=== PATIENT | female | born 1985 | race Caucasian/White ===

== ENCOUNTER 2016-03-07 15:37 | Emergency (ER) | payer OTHER ==
[~2016-03-07] VITALS: Wt 67.5 kg
[~2016-03-07 15:37] MED LIST: ACET500C5 PO; CEPH-443 PO; CETI10CA PO; CLOT30CR24 TOP; DICY20TA59 PO; ELEC100080 PO; FLUT16SP17 NASAL; HYDR-3498 PO; IBUP-1542 PO; LOPE2CAP PO; NITR-58 PO; ONDA4TAB35 PO; ZOF8 PO
[2016-03-07] MEDS ORDERED: AMOX1TAB10 PO (16:58)
[2016-03-07] MEDS ORDERED: IBUP-1542 PO (16:58)
--- NOTE | 2016-03-07 18:01 | ERD ---
ER Documentation Chief Complaint Date/Time DATE: 03/07/16 TIME: 17:58 Chief Complaint LEFT EAR PAIN X2 DAYS HPI 30-year-old female comes in with left-sided facial pain for 2 days. It is localized just right outside and anterior to the left ear, she states that she feels a ball in that area, and it is exacerbated each time she tries to chew or talk. There is no pain in the ear, she denies any fevers or chills. ROS All systems reviewed and are negative except as per history of present illness. Medications Home Meds Active Scripts Ibuprofen* (Motrin*) 600 Mg Tab, 600 MG PO Q6, #30 TAB Prov:BLAKE PEDRAZA PA-C 03/07/16 Amoxicillin/Potassium Clav (Amox-Clav 875-125 mg Tablet) 875-125 mg Tab, 1 TAB PO BID for 7 Days, #14 TAB Prov:BLAKE PEDRAZA PA-C 03/07/16 Ibuprofen* (Motrin*) 600 Mg Tab, 600 MG PO Q6, #30 TAB Prov:BLAKE PEDRAZA PA-C 01/22/16 Ibuprofen* (Motrin*) 600 Mg Tab, 600 MG PO Q6H Y for PAIN AND OR ELEVATED TEMP, #30 TAB Prov:KATHI COLON NP 11/25/15 Dicyclomine Hcl* (Bentyl*) 20 Mg Tablet, 20 MG PO QID, #20 TAB Prov:KATHI COLON NP 11/25/15 Cephalexin* (Keflex*) 500 Mg Capsule, 500 MG PO QID for 10 Days, CAP Prov:KATHI COLON NP 11/25/15 Fluticasone Propionate* (Fluticasone Propionate* Nasal) 50 Mcg/[place] - 16 Gm [place].susp, 1 SPRAY NASAL BID, #1 BOTTLE TO EACH NOSTRIL Prov:LD HUTCHINS PA-C 10/31/15 Ibuprofen* (Motrin*) 600 Mg Tab, 600 MG PO Q6, #30 TAB Prov:LD HUTCHINS PA-C 10/31/15 Cetirizine Hcl* (Zyrtec*) 10 Mg Capsule, 10 MG PO DAILY, #14 TAB.CHEW Prov:LD HUTCHINS PA-C 10/31/15 Electrolyte,Oral (Pedialyte) 1,000 Ml Solution, 100 ML PO Q6 Y for DIARRHEA, # 1000 ML Prov:LD HUTCHINS PA-C 10/31/15 Loperamide Hcl* (Imodium*) 2 Mg Capsule, 2 MG PO .AFTER EA LOOSE BM Y for DIARRHEA, #8 TAB Prov:LD HUTCHINS PA-C 10/31/15 Ibuprofen* (Motrin*) 600 Mg Tab, 600 MG PO Q6H Y for PAIN AND OR ELEVATED TEMP, #30 Prov:HELEN AVILA NP 01/01/15 Acetaminophen* (Tylophen*) 500 Mg Capsule, 1 CAP PO Q6H Y for PAIN AND OR ELEVATED TEMP, #20 CAP Prov:PONCE WILLSON PA-C 11/03/14 Ondansetron Hcl* (Zofran* ODT) 4 mg -ODT Tab.disper, 4 MG PO Q6 Y for NAUSEA AND /OR VOMITING, #20 TAB Prov:PONCE WILLSON PA-C 11/03/14 Clotrimazole* (Clotrimazole* AF) 1% - 30 Gm Cream.gm., 1 APPLIC TOP QHS for 7 Days, TUB Prov:PONCE WILLSON PA-C 11/03/14 Ondansetron Hcl* (Zofran* ODT) 8 mg -ODT Tab.disper, 8 MG PO Q6 Y for NAUSEA AND /OR VOMITING, #10 TAB Prov:MILLA ANDREWS MD 10/29/14 Hydrocodone Bit-Acetaminophen* ([place]*) 5-325 Mg Tab, 1 TAB PO Q6 Y for PAIN, # 12 TAB Prov:MILLA ANDREWS MD 10/29/14 Acetaminophen* (Tylophen*) 500 Mg Capsule, 1 CAP PO Q6H Y for PAIN AND OR ELEVATED TEMP, #20 CAP Prov:KATHI COLON NP 10/14/14 Ondansetron Hcl* (Zofran* ODT) 4 mg -ODT Tab.disper, 4 MG PO Q8 Y for NAUSEA AND /OR VOMITING, #30 TAB Prov:KATHI COLON NP 10/14/14 Nitrofurantoin Monohyd Macrocr* (Macrobid*) 100 Mg Capsr, 100 MG PO BID for 7 Days, CAP Prov:KATHI COLON MCCARTHY TDoug DURON 10/14/14 Reported Medications [none] No Conflict Check 10/18/12 Allergies Allergies: Coded Allergies: No Known Allergies (Verified Allergy, Mild, 10/30/15) PMhx/Soc History of Surgery: No Anesthesia Reaction: No Hx Neurological Disorder: No Hx Respiratory Disorders: No Hx Cardiac Disorders: No Hx Psychiatric Problems: No Hx Miscellaneous Medical Probl: No Hx Alcohol Use: Yes (former ) Hx Substance Use: Yes (former) Hx Tobacco Use: Yes (former) Physical Exam Vitals Vital Signs Date Time Temp Pulse Resp B/P Pulse Ox O2 Delivery O2 Flow Rate FiO2 03/07/16 16:07 97.4 78 18 100/50 98 Physical Exam General: Well-developed, well-nourished. The patient appears in no acute distress. HEENT: Head is normocephalic, atraumatic. No scleral icterus. Bilateral ears are normal. Pupils are equal, round, and reactive. Oral mucous membranes are moist. No pharyngeal erythema. Left preauricular lymph node is swollen and tender to palpation. There are no overlying skin changes. Neck: Supple. Nontender. Lungs: Clear to auscultation. Normal air movement. Heart: Regular rate and rhythm. S1 and S2 are normal. No murmurs, gallops, or rubs. Abdomen: Soft, nontender, nondistended. Bowel sounds are normoactive. Extremities: No clubbing or cyanosis. Normal pulses. Moving extremities x 4. No weakness. Neurologic: Alert and oriented 3. No focal deficits. Skin: Normal turgor. No rash or lesions. Procedures/MDM 30-year-old female comes in with lymphangitis, differential diagnosis includes lymphangitis, lymphadenopathy, abscess, cellulitis, Valle's palsy, otitis media, otitis externa, dental infection, TMJ and among others. There is swelling and tenderness that is localized to the preauricular lymph node. Patient comes to the ER concerned about a possible abscess that needs to be drained. Patient's symptoms are likely related to a viral infection, low suspicion for bacterial infection however patient will still be covered. Patient was advised to return if she has any skin changes, erythema, fever or worsening pain or swelling. Departure Diagnosis: Primary Impression: Lymphangitis Condition: Good Patient Instructions: Lymphangitis Additional Instructions: Call your primary care doctor TOMORROW for an appointment during the next 1-2 days.See the doctor sooner or return here if your condition worsens before your appointment time. BLAKE PEDRAZA PA-C Mar 07, 2016 18:00
== END 2016-03-07 17:02 | disposition home or self-care (01) ==
LOC: E/R 15:37
DX: I89.1 Lymphangitis (principal); Z87.891 Personal history of nicotine dependence
CPT/HCPCS: 99283

== ENCOUNTER 2016-06-23 20:01 | Emergency (ER) | payer OTHER ==
[~2016-06-23] VITALS: Ht 162.6 cm; Wt 68.5 kg
[~2016-06-23 20:01] MED LIST changes: +AMOX1TAB10 PO
[2016-06-23 20:12] VITALS: Ht 162.6 cm; Wt 68.5 kg
[2016-06-23] MEDS ORDERED: DOXY100T20 PO (21:30)
[2016-06-23 21:50] VITALS: BP 103/62; PULSE 75; RESP 18; TEMP 99.1
--- NOTE | 2016-06-23 23:03 | ERD ---
ER Documentation Chief Complaint Date/Time DATE: 06/23/16 TIME: 23:00 Chief Complaint LEFT GREAT TOE REDNESS/SWELLING WITH PUS + INGROWN NAIL HPI This patient is a 31-year-old female with no significant medical history presenting to the emergency department for left ingrowing toenail with redness and swelling and discharge. The patient has no history of ingrown toenail. The patient is taken no medication for relief of symptoms. The patient states she has an Implanon control device. No other reported symptoms at this time. No fevers. ROS All systems reviewed and are negative except as per history of present illness. Medications Home Meds Active Scripts Doxycycline Hyclate* (Doxycycline Hyclate*) 100 Mg Tablet.dr, 100 MG PO BID for 10 Days, #20 TAB Prov:TAY MATTHEWS PA-C 06/23/16 Ibuprofen* (Motrin*) 600 Mg Tab, 600 MG PO Q6, #30 TAB Prov:BLAKE PEDRAZA PA-C 03/07/16 Amoxicillin/Potassium Clav (Amox-Clav 875-125 mg Tablet) 875-125 mg Tab, 1 TAB PO BID for 7 Days, #14 TAB Prov:BLAKE PEDRAZA PA-C 03/07/16 Ibuprofen* (Motrin*) 600 Mg Tab, 600 MG PO Q6, #30 TAB Prov:BLAKE PEDRAZA PA-C 01/22/16 Ibuprofen* (Motrin*) 600 Mg Tab, 600 MG PO Q6H Y for PAIN AND OR ELEVATED TEMP, #30 TAB Prov:KATHI COLON NP 11/25/15 Dicyclomine Hcl* (Bentyl*) 20 Mg Tablet, 20 MG PO QID, #20 TAB Prov:KATHI COLON NP 11/25/15 Cephalexin* (Keflex*) 500 Mg Capsule, 500 MG PO QID for 10 Days, CAP Prov:KATHI COLON NP 11/25/15 Fluticasone Propionate* (Fluticasone Propionate* Nasal) 50 Mcg/[place] - 16 Gm [place].susp, 1 SPRAY NASAL BID, #1 BOTTLE TO EACH NOSTRIL Prov:LD HUTCHINS PA-C 10/31/15 Ibuprofen* (Motrin*) 600 Mg Tab, 600 MG PO Q6, #30 TAB Prov:LD HUTCHINS PA-C 10/31/15 Cetirizine Hcl* (Zyrtec*) 10 Mg Capsule, 10 MG PO DAILY, #14 TAB.CHEW Prov:LD HUTCHINS PA-C 10/31/15 Electrolyte,Oral (Pedialyte) 1,000 Ml Solution, 100 ML PO Q6 Y for DIARRHEA, # 1000 ML Prov:LD HUTCHINS PA-C 10/31/15 Loperamide Hcl* (Imodium*) 2 Mg Capsule, 2 MG PO .AFTER EA LOOSE BM Y for DIARRHEA, #8 TAB Prov:LD HUTCHINS PA-C 10/31/15 Ibuprofen* (Motrin*) 600 Mg Tab, 600 MG PO Q6H Y for PAIN AND OR ELEVATED TEMP, #30 Prov:HELEN AVILA NP 01/01/15 Acetaminophen* (Tylophen*) 500 Mg Capsule, 1 CAP PO Q6H Y for PAIN AND OR ELEVATED TEMP, #20 CAP Prov:PONCE WILLSON PA-C 11/03/14 Ondansetron Hcl* (Zofran* ODT) 4 mg -ODT Tab.disper, 4 MG PO Q6 Y for NAUSEA AND /OR VOMITING, #20 TAB Prov:PONCE WILLSON PA-C 11/03/14 Clotrimazole* (Clotrimazole* AF) 1% - 30 Gm Cream.gm., 1 APPLIC TOP QHS for 7 Days, TUB Prov:PONCE WILLSON PA-C 11/03/14 Ondansetron Hcl* (Zofran* ODT) 8 mg -ODT Tab.disper, 8 MG PO Q6 Y for NAUSEA AND /OR VOMITING, #10 TAB Prov:MILLA ANDREWS MD 10/29/14 Hydrocodone Bit-Acetaminophen* ([place]*) 5-325 Mg Tab, 1 TAB PO Q6 Y for PAIN, # 12 TAB Prov:MILLA ANDREWS MD 10/29/14 Acetaminophen* (Tylophen*) 500 Mg Capsule, 1 CAP PO Q6H Y for PAIN AND OR ELEVATED TEMP, #20 CAP Prov:KATHI COLON NP 10/14/14 Ondansetron Hcl* (Zofran* ODT) 4 mg -ODT Tab.disper, 4 MG PO Q8 Y for NAUSEA AND /OR VOMITING, #30 TAB Prov:KATHI COLON NP 10/14/14 Nitrofurantoin Monohyd Macrocr* (Macrobid*) 100 Mg Capsr, 100 MG PO BID for 7 Days, CAP Prov:KATHI COLON NP 10/14/14 Reported Medications [none] No Conflict Check 10/18/12 Allergies Allergies: Coded Allergies: No Known Allergies (Verified Allergy, Mild, 10/30/15) PMhx/Soc History of Surgery: No Anesthesia Reaction: No Hx Neurological Disorder: No Hx Respiratory Disorders: No Hx Cardiac Disorders: No Hx Psychiatric Problems: No Hx Miscellaneous Medical Probl: No (DENIES MEDICAL AND SURGICAL HX.) Hx Alcohol Use: Yes (former ) Hx Substance Use: Yes (former) Hx Tobacco Use: Yes (former) Smoking Status: Former smoker FmHx Noncontributory for chief complaint Physical Exam Vitals Vital Signs Date Time Temp Pulse Resp B/P Pulse Ox O2 Delivery O2 Flow Rate FiO2 06/23/16 21:50 99.1 75 18 103/62 100 Room Air 06/23/16 20:12 99.1 79 18 110/58 99 Physical Exam Const: The patient is resting comfortably in no acute distress. Head: Atraumatic Eyes: Normal Conjunctiva ENT: Normal External Ears, Nose and Mouth. Neck: Full range of motion..~ No meningismus. Resp: Clear to auscultation bilaterally Cardio: Regular rate and rhythm, no murmurs Abd: Soft, non tender, non distended. Normal bowel sounds Skin: No petechiae or rashes Back: No midline or flank tenderness Ext: There is an ingrowing nail noted to the left great toenail on the lateral side. There is associated redness, swelling, and some mild drainage which is purulent. The patient has 2+ pedal pulses and there is no significant erythema or warmth of the left foot. Neur: Awake and alert Psych: Normal Mood and Affect Procedures/MDM 31-year-old female presents secondary to complaints of ingrowing toenail with associated redness, swelling, and drainage on the left great toe. On physical examination the patient's vitals are within normal limits. Patient is afebrile. The left great toenail does appear to have an early cellulitis. I do not believe that removal the toenails indicated at this time due to secondary cellulitis. The patient stable for outpatient management with a prescription for doxycycline. The patient understands the discharge plan and diagnosis. Strict ER return precautions were discussed and the patient understands. Patient is to have close follow-up with primary care physician. The patient can return to the emergency department to have toenail removed after cellulitis has improved or resolved. All questions and concerns were addressed. Departure Diagnosis: Primary Impression: Cellulitis Site of cellulitis: unspecified site Qualified Code: L03.90 - Cellulitis, unspecified cellulitis site Additional Impression: Ingrowing nail with infection Condition: Fair Patient Instructions: Ingrown Toenail, Infected (Abx Only) Additional Instructions: Follow up with your PCP within the next 1-3 days for a more thorough evaluation and a possible referral to a specialist. Return the the emergency department immediately if symptoms worsen or change. If you have any questions regarding medications, ask your pharmacist or us before you leave. If any adverse reactions, occur while taking your medications, discontinue the treatment and return to the emergency department immediately. If any new or worsening symptoms, uncontrolled fevers, or other unexplained symptoms occur, return to the emergency department immediately. Take your medications as directed, and complete the entire course of treatment. TAY MATTHEWS PA-C June 23, 2016 23:03
== END 2016-06-23 21:50 | disposition home or self-care (01) ==
LOC: FTE 20:01
DX: L03.032 Cellulitis of left toe (principal); L60.0 Ingrowing nail; Z87.891 Personal history of nicotine dependence
CPT/HCPCS: 99283

== ENCOUNTER 2016-10-11 08:53 | Emergency (ER) | payer OTHER ==
[~2016-10-11] VITALS: Ht 160 cm; Wt 67.0 kg
[~2016-10-11 08:53] MED LIST changes: +DOXY100T20 PO
[2016-10-11 09:00] VITALS: Ht 160 cm; Wt 67.0 kg
[2016-10-11] MEDS ORDERED: ONDANSETRON 4 MG INJ IV STA (09:30)
[2016-10-11] MEDS ORDERED: FAMOTIDINE 20 MG INJ IV STA (09:30)
[2016-10-11] MEDS ORDERED: SOD CHLORIDE 0.9% 1,000 ML IV STA (09:30)
[2016-10-11 10:33] LABS: ADD UMIC YES; UR ASCORBIC ACID NEGATIVE (NEGATIVE); UR BILIRUBIN (Dip) NEGATIVE (NEGATIVE); UR BLOOD (Dip) 1+ mg/dL (NEGATIVE); UR CLARITY SLIGHTLY CLOUDY (CLEAR); UR COLOR YELLOW (YELLOW); UR GLUCOSE (Dip) NEGATIVE (NEGATIVE); UR KETONES (Dip) NEGATIVE (NEGATIVE); UR LEUKOCYTE ESTERASE (Dip) TRACE Leu/ul (NEGATIVE); UR MUCUS FEW /HPF (NONE SEEN); UR NITRITE (Dip) NEGATIVE (NEGATIVE); UR RBC 4 /HPF (0-5); UR SPECIFIC GRAVITY (Dip) 1.029 (1.003-1.030); UR SQUAMOUS EPITHELIAL CELL FEW /HPF (FEW); UR TOTAL PROTEIN (Dip) 1+ mg/dl (NEGATIVE); UR UROBILINOGEN (Dip) NEGATIVE (NEGATIVE)
[2016-10-11 10:45] LABS: ALBUMIN/GLOBULIN RATIO 1.21; BILIRUBIN,INDIRECT 0.3 mg/dl (0-1.1); BILIRUBIN,TOTAL 0.3 mg/dl (0.2-1.3); CALCIUM 8.8 mg/dl (8.4-10.2); CREATININE 0.66 mg/dl (0.44-1.00); POTASSIUM 3.8 mmol/L (3.5-5.1); TOTAL PROTEIN 7.3 g/dl (6.1-8.1)
[2016-10-11 11:00] LABS: BASOPHILS % 0.5 % (0.0-2.0); EOSINOPHILS # 0.1 10^3/ul (0.0-0.5); HEMATOCRIT 38.1 % (37.0-47.0); HEMOGLOBIN 12.6 g/dl (12.0-16.0); LYMPHOCYTES # 2.2 10^3/ul (0.8-2.9); LYMPHOCYTES % 27.4 % (15.0-51.0); MEAN CORPUSCULAR HEMOGLOBIN 29.6 pg (29.0-33.0); MEAN CORPUSCULAR HGB CONC 33.1 g/dl (32.0-37.0); MEAN CORPUSCULAR VOLUME 89.4 fl (82.0-101.0); MONOCYTE # 0.5 10^3/ul (0.3-0.9); NEUTROPHILS % 64.7 % (39.0-77.0); PLATELET COUNT 229 10^3/UL (140-415); RED BLOOD COUNT 4.26 10^6/ul (4.20-5.40); RED CELL DISTRIBUTION WIDTH 12.4 % (11.5-14.5); WHITE BLOOD COUNT 8.2 10^3/ul (4.8-10.8)
--- NOTE | 2016-10-11 11:12 | ERD ---
ER Documentation Chief Complaint Date/Time DATE: 10/11/16 TIME: 11:10 Chief Complaint vomiting and diarrhea HPI This 31-year-old female presents to the emergency room for evaluation of vomiting and diarrhea for the past 24 hours. She describes her diarrhea as watery, non-mucousy, nonbloody. She states that today she was at home and had 2 episodes of diarrhea and felt weak afterwards. She denies any chest pain or fevers associated with this, denies any recent travel and came to the ER for evaluation. ROS All systems reviewed and are negative except as per history of present illness. Medications Home Meds Active Scripts Doxycycline Hyclate* (Doxycycline Hyclate*) 100 Mg Tablet.dr, 100 MG PO BID for 10 Days, #20 TAB Prov:TAY MATTHEWS PA-C 06/23/16 Ibuprofen* (Motrin*) 600 Mg Tab, 600 MG PO Q6, #30 TAB Prov:BLAKE PEDRAZA PA-C 03/07/16 Amoxicillin/Potassium Clav (Amox-Clav 875-125 mg Tablet) 875-125 mg Tab, 1 TAB PO BID for 7 Days, #14 TAB Prov:BLAKE PEDRAZA PA-C 03/07/16 Ibuprofen* (Motrin*) 600 Mg Tab, 600 MG PO Q6, #30 TAB Prov:BLAKE PEDRAZA PA-C 01/22/16 Ibuprofen* (Motrin*) 600 Mg Tab, 600 MG PO Q6H Y for PAIN AND OR ELEVATED TEMP, #30 TAB Prov:KATHI COLON NP 11/25/15 Dicyclomine Hcl* (Bentyl*) 20 Mg Tablet, 20 MG PO QID, #20 TAB Prov:KATHI COLON NP 11/25/15 Cephalexin* (Keflex*) 500 Mg Capsule, 500 MG PO QID for 10 Days, CAP Prov:KATHI COLON NP 11/25/15 Fluticasone Propionate* (Fluticasone Propionate* Nasal) 50 Mcg/[place] - 16 Gm [place].susp, 1 SPRAY NASAL BID, #1 BOTTLE TO EACH NOSTRIL Prov:LD HUTCHINS PA-C 10/31/15 Ibuprofen* (Motrin*) 600 Mg Tab, 600 MG PO Q6, #30 TAB Prov:LD HUTCHINS PA-C 10/31/15 Cetirizine Hcl* (Zyrtec*) 10 Mg Capsule, 10 MG PO DAILY, #14 TAB.CHEW Prov:LD HUTCHINS PA-C 10/31/15 Electrolyte,Oral (Pedialyte) 1,000 Ml Solution, 100 ML PO Q6 Y for DIARRHEA, # 1000 ML Prov:LD HUTCHINS PA-C 10/31/15 Loperamide Hcl* (Imodium*) 2 Mg Capsule, 2 MG PO .AFTER EA LOOSE BM Y for DIARRHEA, #8 TAB Prov:LD HUTCHINS PA-C 10/31/15 Ibuprofen* (Motrin*) 600 Mg Tab, 600 MG PO Q6H Y for PAIN AND OR ELEVATED TEMP, #30 Prov:HELEN AVILA NP 01/01/15 Acetaminophen* (Tylophen*) 500 Mg Capsule, 1 CAP PO Q6H Y for PAIN AND OR ELEVATED TEMP, #20 CAP Prov:PONCE WILLSON PA-C 11/03/14 Ondansetron Hcl* (Zofran* ODT) 4 mg -ODT Tab.disper, 4 MG PO Q6 Y for NAUSEA AND /OR VOMITING, #20 TAB Prov:PONCE WILLSON PA-C 11/03/14 Clotrimazole* (Clotrimazole* AF) 1% - 30 Gm Cream.gm., 1 APPLIC TOP QHS for 7 Days, TUB Prov:PONCE WILLSON PA-C 11/03/14 Ondansetron Hcl* (Zofran* ODT) 8 mg -ODT Tab.disper, 8 MG PO Q6 Y for NAUSEA AND /OR VOMITING, #10 TAB Prov:MILLA ANDREWS MD 10/29/14 Hydrocodone Bit-Acetaminophen* ([place]*) 5-325 Mg Tab, 1 TAB PO Q6 Y for PAIN, # 12 TAB Prov:MILLA ANDREWS MD 10/29/14 Acetaminophen* (Tylophen*) 500 Mg Capsule, 1 CAP PO Q6H Y for PAIN AND OR ELEVATED TEMP, #20 CAP Prov:KATHI COLON NP 10/14/14 Ondansetron Hcl* (Zofran* ODT) 4 mg -ODT Tab.disper, 4 MG PO Q8 Y for NAUSEA AND /OR VOMITING, #30 TAB Prov:KATHI COLON PALLIATIVE MEDICINE PHYSICIAN 10/14/14 Nitrofurantoin Monohyd Macrocr* (Macrobid*) 100 Mg Capsr, 100 MG PO BID for 7 Days, CAP Prov:KATHI COLON PALLIATIVE MEDICINE PHYSICIAN 10/14/14 Reported Medications [none] No Conflict Check 10/18/12 Allergies Allergies: Coded Allergies: No Known Allergies (Verified Allergy, Mild, 10/30/15) PMhx/Soc History of Surgery: No Anesthesia Reaction: No Hx Neurological Disorder: No Hx Respiratory Disorders: No Hx Cardiac Disorders: No Hx Psychiatric Problems: No Hx Miscellaneous Medical Probl: No (DENIES MEDICAL AND SURGICAL HX.) Hx Alcohol Use: Yes (former ) Hx Substance Use: Yes (former) Hx Tobacco Use: Yes (former) Smoking Status: Current some day smoker Physical Exam Vitals Vital Signs Date Time Temp Pulse Resp B/P Pulse Ox O2 Delivery O2 Flow Rate FiO2 10/11/16 09:00 98.1 74 18 100/55 99 Physical Exam Const: No acute distress Head: Atraumatic Eyes: Normal Conjunctiva ENT: Dry mucous membranes, normal External Ears, Nose and Mouth. Neck: Full range of motion..~ No meningismus. Resp: Clear to auscultation bilaterally Cardio: Regular rate and rhythm, no murmurs Abd: Soft, non tender, non distended. Normal bowel sounds Skin: No petechiae or rashes Back: No midline or flank tenderness Ext: No cyanosis, or edema Neur: Awake and alert Psych: Normal Mood and Affect Result Diagram: 10/11/1694510/11/16945 Results 24 hrs Laboratory Tests Test 10/11/16 09:39 10/11/16 09:46 Urine Color YELLOW Urine Clarity SLIGHTLY CLOUDY Urine pH 7.0 Urine Specific [place] 1.029 Urine Ketones NEGATIVEmg/dL Urine Nitrite NEGATIVEmg/dL Urine Bilirubin NEGATIVEmg/dL Urine Urobilinogen NEGATIVEmg/dL Urine Leukocyte Esterase TRACELeu/ul Urine Microscopic RBC 4/HPF Urine Microscopic WBC 5/HPF Urine Squamous Epithelial Cells FEW/HPF Urine Mucus FEW/HPF Urine Hemoglobin 1+mg/dL Urine Glucose NEGATIVEmg/dL Urine Total Protein 1+mg/dl White Blood Count 8.210^3/ul Red Blood Count 4.2610^6/ul Hemoglobin 12.6g/dl Hematocrit 38.1% Mean Corpuscular Volume 89.4fl Mean Corpuscular Hemoglobin 29.6pg Mean Corpuscular Hemoglobin Concent 33.1g/dl Red Cell Distribution Width 12.4% Platelet Count 84271^3/UL Mean Platelet Volume 11.0fl Neutrophils % 64.7% Lymphocytes % 27.4% Monocytes % 6.0% Eosinophils % 1.0% Basophils % 0.5% Nucleated Red Blood Cells % 0.0/100WBC Neutrophils # (Manual) 510^3/ul Lymphocytes # 2.210^3/ul Monocytes # 0.510^3/ul Eosinophils # 0.110^3/ul Basophils # 0.010^3/ul Nucleated Red Blood Cells # 0.010^3/ul Sodium Level 142mmol/L Potassium Level 3.8mmol/L Chloride Level 100mmol/L Carbon Dioxide Level 28mmol/L Anion Gap 18 Blood Urea Nitrogen 12mg/dl Creatinine 0.66mg/dl Glucose Level 80mg/dl Calcium Level 8.8mg/dl Total Bilirubin 0.3mg/dl Direct Bilirubin 0.00mg/dl Indirect Bilirubin 0.3mg/dl Aspartate Amino Transf (AST/SGOT) 21IU/L Alanine Aminotransferase (ALT/SGPT) 28IU/L Alkaline Phosphatase 63IU/L Total Protein 7.3g/dl Albumin 4.0g/dl Globulin 3.30g/dl Albumin/Globulin Ratio 1.21 Lipase 111U/L Serum HCG, Qualitative NEGATIVE Current Medications Medications (Trade) Dose Ordered Sig/Eleazar Route PRN Reason Start Time Stop Time Status Last Admin Dose Admin Sodium Chloride (NS) 1,000 ml @ 1,000 mls/hr Q1H STAT IV 10/11/16 09:30 10/11/16 10:29 DC 10/11/16 10:03 Ondansetron HCl (Zofran Inj) 4 mg ONCE STAT IV 10/11/16 09:30 10/11/16 10:02 DC 10/11/16 10:03 Famotidine (Pepcid Iv) 20 mg ONCE STAT IV 10/11/16 09:30 10/11/16 10:02 DC 10/11/16 10:03 Procedures/MDM This 31-year-old female presents to the ER for evaluation of nausea, vomiting and diarrhea. She was afebrile, and hemodynamically stable when I evaluated this patient. She was in no acute distress. The patient did have dry mucous membranes I did obtain lab work which does not demonstrate any acute electrolyte abnormality. The patient was given 1 L fluids, she was given the Zofran and Pepcid. When I reevaluated her she did say she is feeling better. The patient will be discharged at this time with instructions to stay hydrated. She will be given a prescription for Zofran to take over the course of the next 48 hours. Departure Diagnosis: Primary Impression: Nausea, vomiting, and diarrhea Additional Impression: Mild dehydration Condition: Stable RAVEN GRANT DO Oct 11, 2016 11:12
[2016-10-11] MEDS ORDERED: ONDA4TAB8 PO (11:13)
== END 2016-10-11 11:35 | disposition home or self-care (01) ==
LOC: FTE 08:53
DX: R11.2 Nausea with vomiting, unspecified (principal); R19.7 Diarrhea, unspecified; E86.0 Dehydration; F17.210 Nicotine dependence, cigarettes, uncomplicated
CPT/HCPCS: 36415; 80053; 81001; 83690; 84703; 85025; 96374; J2405; J7030; Z7502; Z7610

== ENCOUNTER 2016-12-19 19:19 | Emergency (ER) | payer OTHER ==
[~2016-12-19] VITALS: Ht 162.6 cm; Wt 72.0 kg
[~2016-12-19 19:19] MED LIST changes: +ONDA4TAB8 PO
[2016-12-19 19:56] VITALS: Ht 162.6 cm; Wt 72.0 kg
--- NOTE | 2016-12-19 22:59 | ERD ---
ER Documentation Chief Complaint Chief Complaint ST x1wk. cough and bodyaches x3days. chills -fever tylenol @11am HPI 31-year-old female presents to the emergency department for complaints of sore throat, cough, congestion, body aches and subjective fever 1 week. Patient denies medical history, asthma, or other pulmonary disease. She denied shortness of breath, chest pain, headache, neck pain, abdominal pain, vomiting or diarrhea. She is attempted to treat her symptoms with [id number] medication without significant relief. ROS All systems reviewed and are negative except as per history of present illness. Medications Home Meds Active Scripts Ondansetron Hcl* (Zofran*) 4 Mg Tablet, 4 MG PO Q6H for NAUSEA AND/OR VOMITING, #10 TAB Prov:RAVEN GRANT DO 10/11/16 Doxycycline Hyclate* (Doxycycline Hyclate*) 100 Mg Tablet.dr, 100 MG PO BID for 10 Days, #20 TAB Prov:TAY MATTHEWS PA-C 06/23/16 Ibuprofen* (Motrin*) 600 Mg Tab, 600 MG PO Q6, #30 TAB Prov:BLAKE PEDRAZA PA-C 03/07/16 Amoxicillin/Potassium Clav (Amox-Clav 875-125 mg Tablet) 875-125 mg Tab, 1 TAB PO BID for 7 Days, #14 TAB Prov:BLAKE PEDRAZA PA-C 03/07/16 Ibuprofen* (Motrin*) 600 Mg Tab, 600 MG PO Q6, #30 TAB Prov:BLAKE PEDRAZA PA-C 01/22/16 Ibuprofen* (Motrin*) 600 Mg Tab, 600 MG PO Q6H Y for PAIN AND OR ELEVATED TEMP, #30 TAB Prov:KATHI COLON NP 11/25/15 Dicyclomine Hcl* (Bentyl*) 20 Mg Tablet, 20 MG PO QID, #20 TAB Prov:KATHI COLON NP 11/25/15 Cephalexin* (Keflex*) 500 Mg Capsule, 500 MG PO QID for 10 Days, CAP Prov:KATHI COLON NP 11/25/15 Fluticasone Propionate* (Fluticasone Propionate* Nasal) 50 Mcg/[place] - 16 Gm [place].susp, 1 SPRAY NASAL BID, #1 BOTTLE TO EACH NOSTRIL Prov:PROUSE,LD M. PA-C 10/31/15 Ibuprofen* (Motrin*) 600 Mg Tab, 600 MG PO Q6, #30 TAB Prov:LD HUTCHINS PA-C 10/31/15 Cetirizine Hcl* (Zyrtec*) 10 Mg Capsule, 10 MG PO DAILY, #14 TAB.CHEW Prov:LD HUTCHINS PA-C 10/31/15 Electrolyte,Oral (Pedialyte) 1,000 Ml Solution, 100 ML PO Q6 Y for DIARRHEA, # 1000 ML Prov:LD HUTCHINS PA-C 10/31/15 Loperamide Hcl* (Imodium*) 2 Mg Capsule, 2 MG PO .AFTER EA LOOSE BM Y for DIARRHEA, #8 TAB Prov:LD HUTCHINS PA-C 10/31/15 Ibuprofen* (Motrin*) 600 Mg Tab, 600 MG PO Q6H Y for PAIN AND OR ELEVATED TEMP, #30 Prov:HELEN AVILA NP 01/01/15 Acetaminophen* (Tylophen*) 500 Mg Capsule, 1 CAP PO Q6H Y for PAIN AND OR ELEVATED TEMP, #20 CAP Prov:PONCE WILLSON PA-C 11/03/14 Ondansetron Hcl* (Zofran* ODT) 4 mg -ODT Tab.disper, 4 MG PO Q6 Y for NAUSEA AND /OR VOMITING, #20 TAB Prov:PONCE WILLSON PA-C 11/03/14 Clotrimazole* (Clotrimazole* AF) 1% - 30 Gm Cream.gm., 1 APPLIC TOP QHS for 7 Days, TUB Prov:PONCE WILLSON PA-C 11/03/14 Ondansetron Hcl* (Zofran* ODT) 8 mg -ODT Tab.disper, 8 MG PO Q6 Y for NAUSEA AND /OR VOMITING, #10 TAB Prov:MILLA ANDREWS MD 10/29/14 Hydrocodone Bit-Acetaminophen* ([place]*) 5-325 Mg Tab, 1 TAB PO Q6 Y for PAIN, # 12 TAB Prov:MILLA ANDREWS MD 10/29/14 Acetaminophen* (Tylophen*) 500 Mg Capsule, 1 CAP PO Q6H Y for PAIN AND OR ELEVATED TEMP, #20 CAP Prov:KATHI COLON NP 10/14/14 Ondansetron Hcl* (Zofran* ODT) 4 mg -ODT Tab.disper, 4 MG PO Q8 Y for NAUSEA AND /OR VOMITING, #30 TAB Prov:KATHI COLON NP 10/14/14 Nitrofurantoin Monohyd Macrocr* (Macrobid*) 100 Mg Capsr, 100 MG PO BID for 7 Days, CAP Prov:KATHI COLON NP 10/14/14 Reported Medications [none] No Conflict Check 10/18/12 Allergies Allergies: Coded Allergies: No Known Allergies (Verified Allergy, Mild, 12/19/16) PMhx/Soc Medical and Surgical Hx: pt denies Medical Hx History of Surgery: Yes (BREAST AUGMENTATION) Anesthesia Reaction: No Hx Neurological Disorder: No Hx Respiratory Disorders: No Hx Cardiac Disorders: No Hx Psychiatric Problems: No Hx Miscellaneous Medical Probl: No (DENIES MEDICAL AND SURGICAL HX.) Hx Alcohol Use: No Hx Substance Use: No Hx Tobacco Use: No Smoking Status: Never smoker Physical Exam Vitals Vital Signs Date Time Temp Pulse Resp B/P Pulse Ox O2 Delivery O2 Flow Rate FiO2 12/19/16 19:56 98.2 78 18 100/59 96 Physical Exam Const: Well-developed, well-nourished, no acute distress Head: Atraumatic Eyes: Normal Conjunctiva ENT: Normal External Ears, Nose and Mouth. Posterior pharynx erythematous with exudate bilaterally. No lymphadenopathy. Neck: Full range of motion..~ No meningismus. Resp: Clear to auscultation bilaterally Cardio: Regular rate and rhythm, no murmurs Abd: Soft, non tender, non distended. Normal bowel sounds Skin: No petechiae or rashes Back: No midline or flank tenderness Ext: No cyanosis, or edema Neur: Awake and alert Psych: Normal Mood and Affect Results 24 hrs Current Medications Medications (Trade) Dose Ordered Sig/Eleazar Route PRN Reason Start Time Stop Time Status Last Admin Dose Admin Ibuprofen (Motrin) 600 mg ONCE ONCE PO 12/19/16 23:00 12/19/16 23:01 Procedures/MDM Otherwise healthy 31-year-old female presents the emergency department for multiple upper respiratory symptoms including sore throat, cough, and body aches for 1 week. Upon arrival, patient Nontoxic appearing, well-nourished, afebrile, not tachycardic and not hypoxic. Lung sounds were clear. Patient with erythema and exudate to the posterior pharynx, concerning for bacterial pharyngitis. At this time low suspicion for pneumonia, pneumothorax, meningitis , severe systemic illness or sepsis. At this time I do not believe laboratory or diagnostic imaging is necessary. Strep test pending I have recommended antibiotics, Motrin, Tylenol, rest and humidifier. Based on patient's history of present illness and physical examination the decision was made to discharge. The patient was re-evaluated after ED treatment and stabilizing measures, and symptoms have improved. There is no evidence of life threatening injuries or illnesses at this time. On re-examination, patient resting in no distress, stable vital signs, reports feeling better and safe for discharge with outpatient follow up with PMD in 1-2 days. Patient given return precautions. Departure Diagnosis: Primary Impression: Sore throat Additional Impression: Upper respiratory infection URI type: unspecified URI Qualified Code: J06.9 - Upper respiratory tract infection, unspecified type MIGUEL ÁNGEL CHAND PA-C Dec 19, 2016 22:59
[2016-12-19] MEDS ORDERED: AMOX500C2 PO (23:00)
[2016-12-19] MEDS ORDERED: D-ME473S2 PO (23:00)
[2016-12-19] MEDS ORDERED: NAPR-260 PO (23:00)
[2016-12-19] MEDS ORDERED: IBUPROFEN 600 MG TAB PO ONE (23:00)
== END 2016-12-19 23:10 | disposition home or self-care (01) ==
LOC: FTE 19:19
DX: J06.9 Acute upper respiratory infection, unspecified (principal)
CPT/HCPCS: 87880; Z7502; Z7610; 99284

== ENCOUNTER 2017-05-11 11:04 | Emergency (ER) | END 2017-05-11 14:00 | disposition home or self-care (01) ==